=== PATIENT | female | born 1985 | race African-American/Black ===

== ENCOUNTER 2017-04-17 16:35 | Emergency (ER) | payer BC, OTHER ==
[~2017-04-17] VITALS: Ht 157.5 cm; Wt 109.0 kg
[~2017-04-17 16:35] MED LIST: CLOTRIMAZOLE 1%; DIPH25CA83; NO HOME MEDS; NO MEDS
[2017-04-17 19:40] VITALS: BP 132/91
[2017-04-17] MEDS ORDERED: PREDNISONE 20MG TABLET PO STA (20:01)
[2017-04-17] MEDS ORDERED: DIPHENHYDRAMINE 25MG CAPSULE PO ONE (20:15)
== END 2017-04-17 20:36 | disposition home or self-care (01) ==
LOC: ER 19:15
DX: L25.9 Unspecified contact dermatitis, unspecified cause (principal); L30.4 Erythema intertrigo
CPT/HCPCS: 99283; J7512; Q0163